=== PATIENT | female | born 1980 | race Caucasian/White ===

== ENCOUNTER 2016-12-18 20:25 | Emergency (ER) | payer MEDICAID ==
[~2016-12-18] VITALS: Ht 167.6 cm; Wt 87.0 kg
[2016-12-18 21:40] VITALS: BP 126/81
== END 2016-12-18 23:55 | disposition home or self-care (01) ==
LOC: ER 22:38
DX: S63.615A Unspecified sprain of left ring finger, initial encounter (principal); Z98.890 Other specified postprocedural states; X58.XXXA Exposure to other specified factors, initial encounter; Y93.89 Activity, other specified; Y92.018 Other place in single-family (private) house as the place of occurrence of the external cause
CPT/HCPCS: 29130; 73130; 81025; 99284

== ENCOUNTER 2025-05-29 12:38 | Emergency (ER) | payer SELFPAY ==
[~2025-05-29] VITALS: Ht 167.6 cm; Wt 89.0 kg
[2025-05-29 12:42] VITALS: O2SAT 99
[2025-05-29] MEDS: KETOROLAC 30MG/ML VIAL IM ONE (15:05)
[2025-05-29] MEDS: LIDOCAINE 5% PATCH TOP SCH (15:06)
[2025-05-29] MEDS: METHOCARBAMOL 500MG TABLET PO ONE (15:06)
[2025-05-29] MEDS ORDERED: IBUP-1455 MT (16:00)
[2025-05-29] MEDS ORDERED: LIDO700A30 TP (16:00)
[2025-05-29] MEDS ORDERED: METH-653 MT (16:00)
[2025-05-29 16:30] VITALS: BP 142/76; PULSE 81; RESP 16; TEMP 37.4; O2SAT 100
== END 2025-05-29 16:31 | disposition home or self-care (01) ==
LOC: ER 13:39
DX: S33.5XXA Sprain of ligaments of lumbar spine, initial encounter (principal); M47.26 Other spondylosis with radiculopathy, lumbar region; Z98.890 Other specified postprocedural states; Z79.899 Other long term (current) drug therapy; X58.XXXA Exposure to other specified factors, initial encounter; Y93.89 Activity, other specified; Y92.89 Other specified places as the place of occurrence of the external cause; Y99.8 Other external cause status
CPT/HCPCS: 99284; 72100; 96372; J1885